=== PATIENT | male | born 1950 | race American Indian/Alaskan Native ===

== ENCOUNTER 2018-09-19 15:04 | Observation (INO) | payer OTHER ==
[2018-09-19 15:11] VITALS: BMI 21.7
[2018-09-19 16:22] LABS: BASO # 0.04 K/mm3 (0.0-2.0); BASO % 0.6 % (0.0-3.0); EOS # 0.1 (0.0-0.7); EOS % 1.5 % (1.5-5.0); GRAN # 4.3 (1.4-6.5); GRAN % 59.9 % (50.0-68.0); HEMOGLOBIN 13.7 g/dL (14.0-18.0); LYMPH % 28.3 % (22.0-35.0); MEAN CELL VOLUME 87.3 fl (80.0-105.0); MEAN CORPUSCULAR HEMOGLOBIN 28.4 pg (25.0-35.0); MEAN CORPUSCULAR HGB CONC 32.5 g/dl (31.0-37.0); MEAN PLATELET VOLUME 10.9 fl (7.0-11.0); MONO # 0.7 (0.1-0.6); MONO % 9.7 % (1.0-6.0); RBC 4.82 10^6/uL (3.5-6.1); RED CELL DISTRIBUTION WIDTH 13.9 % (11.5-14.5); WHITE BLOOD COUNT 7.2 10^3/uL (4.5-11.0)
--- NOTE | 2018-09-19 16:26 | RAD ---
Date of service: 09/19/2018 HISTORY: cp COMPARISON: No prior. FINDINGS: LUNGS: No active pulmonary disease. PLEURA: No significant pleural effusion identified, no pneumothorax apparent. CARDIOVASCULAR: No aortic atherosclerotic calcification present. Normal cardiac size. No pulmonary vascular congestion. OSSEOUS STRUCTURES: No significant abnormalities. VISUALIZED UPPER ABDOMEN: Normal. OTHER FINDINGS: None. IMPRESSION: No active disease.
[2018-09-19 16:36] LABS: ALB/GLOB RATIO 1.2 (1.1-1.8); ALBUMIN 4.3 g/dL (3.0-4.8); ALT/SGPT 22 U/L (7-56); AST/SGOT 25 U/L (17-59); BLOOD UREA NITROGEN 16 mg/dL (7-21); CALCIUM 9.5 mg/dL (8.4-10.5); GFR NON-AFRICAN AMERICAN > 60
[2018-09-19 16:48] LABS: B-TYPE NATRIURETIC PEPTIDE 12.2 pg/mL (0-450); TROPONIN I < 0.01 ng/mL
[2018-09-19 17:15] LABS: LIPASE 87 U/L (23-300)
--- NOTE | 2018-09-19 18:00 | ED PDOC ---
Arrival/HPI - General Chief Complaint: Chest Pain Time Seen by Provider: 09/19/18 15:16 Historian: Patient - History of Present Illness Narrative History of Present Illness (Text): 09/19/18 17:55 68-year-old male with a history of stroke high blood pressure and smoking history presents today with 2-3 day history of left-sided chest pressure. No associated shortness of breath. Patient denies radiation of the pain. Patient describes the pain as a pressure sensation located underneath the left breast/chest. He denies fevers or chills. He denies radiation of pain. He denies cough. No headaches dizziness or weakness. No abdominal pain. No nausea or vomiting. No urinary symptoms. Past Medical History - Provider Review Nursing Documentation Reviewed: Yes - Travel History Have you recently traveled outside [place] w/in the past 3 mons?: No - Infectious Disease Hx of Infectious Diseases: None - Cardiac Hx Cardiac Disorders: Yes Hx Hypertension: Yes - Pulmonary Hx Respiratory Disorders: No - Neurological Hx Neurological Disorder: Yes HX Cerebrovascular Accident: Yes (Nov 2017) - HEENT Hx HEENT Disorder: No - Renal Hx Renal Disorder: No - Endocrine/Metabolic Hx Endocrine Disorders: No - Hematological/Oncological Hx Blood Disorders: No - Integumentary Hx Dermatological Disorder: No - Musculoskeletal/Rheumatological Hx Musculoskeletal Disorders: No - Gastrointestinal Hx Gastrointestinal Disorders: No - Genitourinary/Gynecological Hx Genitourinary Disorders: No - Psychiatric Hx Psychophysiologic Disorder: No Hx Substance Use: No Family/Social History - Physician Review Nursing Documentation Reviewed: Yes Family/Social History: Unknown Family HX Smoking Status: Heavy Smoker > 10 Cigarettes Daily Hx Alcohol Use: Yes Frequency of alcohol use: Socially Hx Substance Use: No Allergies/Home Meds Allergies/Adverse Reactions: Allergies No Known Allergies Allergy (Verified 09/19/18 15:41) Review of Systems - Review of Systems Constitutional: absent: Fatigue, Fevers Respiratory: absent: SOB, Cough Cardiovascular: Chest Pain. absent: Palpitations Gastrointestinal: absent: Abdominal Pain, Constipation, Diarrhea, Nausea, Vomiting Genitourinary Male: absent: Dysuria, Frequency, Hematuria Musculoskeletal: absent: Arthralgias, Back Pain, Neck Pain Skin: absent: Rash, Pruritis Neurological: absent: Headache, Dizziness Psychiatric: absent: Anxiety, Depression, Suicidal Ideation Physical Exam Vital Signs Reviewed: Yes Vital Signs Temp Pulse Pulse Resp BP Pulse Ox 09/19/18 15:41 52 L 56 L 18 127/82 98 09/19/18 15:24 98.0 F 54 L 18 98/64 L 96 Temperature: Afebrile Blood Pressure: Normal Pulse: Bradycardic Respiratory Rate: Normal Appearance: Positive for: Well-Appearing, Non-Toxic, Comfortable Pain Distress: None Mental Status: Positive for: Alert and Oriented X 3 - Systems Exam Head: Present: Atraumatic Mouth: Present: Moist Mucous Membranes Neck: Present: Normal Range of Motion Respiratory/Chest: Present: Clear to Auscultation, Good Air Exchange. No: Respiratory Distress, Accessory Muscle Use Cardiovascular: Present: Regular Rate and Rhythm, Murmurs, Normal S1, S2, Bradycardic Abdomen: No: Tenderness, Distention, Rebound, Guarding Back: Present: Normal Inspection Upper Extremity: Present: Normal ROM Lower Extremity: Present: Normal ROM. No: Edema, CALF TENDERNESS Neurological: Present: GCS=15, Speech Normal Skin: Present: Warm, Dry, Normal Color. No: Rashes Psychiatric: Present: Alert, Oriented x 3 Medical Decision Making ED Course and Treatment: 09/19/18 17:57 pt with chest pain ; vitals stable cbc; wnl cmp; wnl trop: wnl ekg; Sinus bradycardiat 51 bpm, right bundle branch block, T-wave inversions in the inferior leads. No ST elevations cxr: No infiltrate or effusion no cardiomegaly asa given po pt reassessment; pt non toxic well appearing; no distress. case discussed with Dr. Hester will Admit observational status to Tele for chest pain r/o acs. pt with hx of cva, htn and smoking hx. all results discussed with patient in depth. impression; chest pain Admit observational status to tele; - Lab Interpretations Lab Results: 09/19/18 16:15 09/19/18 16:15 Lab Results 09/19/18 16:15: Sodium 141, Potassium 4.1, Chloride 103, Carbon Dioxide 33, Anion Gap 9 L, BUN 16, Creatinine 1.0, Est GFR ( Amer) > 60, Est GFR (Non-Af Amer) > 60, Random Glucose 98, Calcium 9.5, Magnesium 2.2, Total Bilirubin 0.4, AST 25, ALT 22, Alkaline Phosphatase 39, Lactate Dehydrogenase 340, Total Creatine Kinase 61, Troponin I < 0.01, NT-Pro-B Natriuret Pep 12.2, Total Protein 7.8, Albumin 4.3, Globulin 3.5, Albumin/Globulin Ratio 1.2, Lipase 87 09/19/18 16:15: WBC 7.2, RBC 4.82, Hgb 13.7 L, Hct 42.1, MCV 87.3, MCH 28.4, MCHC 32.5, RDW 13.9, Plt Count 238, MPV 10.9, Gran % 59.9, Lymph % (Auto) 28.3, Mason % (Auto) 9.7 H, Eos % (Auto) 1.5, Baso % (Auto) 0.6, Gran # 4.30, Lymph # (Auto) 2.0, Mason # (Auto) 0.7 H, Eos # (Auto) 0.1, Baso # (Auto) 0.04 - RAD Interpretation Radiology Orders: 09/19/18 15:42 CHEST PORTABLE [RAD] Stat - Medication Orders Current Medication Orders: Discontinued Medications Aspirin (Aspirin) 325 mg PO STAT STA Stop: 09/19/18 17:08 Last Admin: 09/19/18 17:17 Dose: 325 mg Disposition/Present on Arrival - Present on Arrival Any Indicators Present on Arrival: No History of DVT/PE: No History of Uncontrolled Diabetes: No Urinary Catheter: No History of Decub. Ulcer: No History Surgical Site Infection Following: None - Disposition Have Diagnosis and Disposition been Completed?: Yes Diagnosis: Chest pain Disposition: HOSPITALIZED Disposition Time: 17:00 Patient Plan: Observation Condition: FAIR Discharge Instructions (ExitCare): Chest Pain (ED)
--- NOTE | 2018-09-19 18:28 | CARD ---
APPROVED REPORT Date of service: 09/19/2018 EKG Measurement Heart [id number] <Conclusion> Sinus bradycardia Right bundle branch block T wave abnormality, consider inferior ischemia Abnormal ECG
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
[2018-09-19 20:38] LABS: PH,URINE 6.5 (4.7-8.0); URINE BILIRUBIN NEGATIVE (NEGATIVE); URINE BLOOD NEGATIVE (NEGATIVE); URINE GLUCOSE (UA) NEGATIVE (NEGATIVE); URINE LEUKOCYTE ESTERASE NEGATIVE Leu/uL (NEGATIVE); URINE PROTEIN NEGATIVE mg/dL (<30 mg/dL); URINE UROBILINOGEN 0.2 E.U./dL (<1 E.U./dL)
[2018-09-19 20:41] LABS: URINE APPEARANCE CLEAR (CLEAR); URINE COLOR LIGHT YELLOW (YELLOW)
[2018-09-19 21:31] LABS: BARBITURATES, UR NEGATIVE (NEGATIVE); BENZODIAZEPINES, UR NEGATIVE (NEGATIVE); OPIATES, UR NEGATIVE (NEGATIVE); PHENCYCLIDINE, UR NEGATIVE (NEGATIVE)
[2018-09-20 04:54] LABS: BASO # 0.06 K/mm3 (0.0-2.0); BASO % 0.8 % (0.0-3.0); EOS # 0.6 (0.0-0.7); EOS % 7.6 % (1.5-5.0); GRAN # 2.88 (1.4-6.5); GRAN % 39.1 % (50.0-68.0); HEMOGLOBIN 12.7 g/dL (14.0-18.0); LYMPH # 3.3 (1.2-3.4); LYMPH % 44.2 % (22.0-35.0); MEAN CELL VOLUME 87.1 fl (80.0-105.0); MEAN CORPUSCULAR HEMOGLOBIN 28.2 pg (25.0-35.0); MEAN CORPUSCULAR HGB CONC 32.3 g/dl (31.0-37.0); MEAN PLATELET VOLUME 11.6 fl (7.0-11.0); MONO # 0.6 (0.1-0.6); MONO % 8.3 % (1.0-6.0); RBC 4.51 10^6/uL (3.5-6.1); WHITE BLOOD COUNT 7.4 10^3/uL (4.5-11.0)
[2018-09-20 05:09] LABS: ALB/GLOB RATIO 1.2 (1.1-1.8); ALBUMIN 3.8 g/dL (3.0-4.8); ALT/SGPT 28 U/L (7-56); AST/SGOT 35 U/L (17-59); BLOOD UREA NITROGEN 21 mg/dL (7-21); CALCIUM 9.1 mg/dL (8.4-10.5); GFR NON-AFRICAN AMERICAN > 60; TROPONIN I 0.01 ng/mL
[2018-09-20] MEDS ORDERED: Pantoprazole 40 mg EC Tab PO SCH (06:00)
[2018-09-20 06:20] VITALS: PULSE 46; O2SAT 97
[2018-09-20] MEDS ORDERED: Potassium Chloride 20 mEq ER Tab PO ONE (09:25)
--- NOTE | 2018-09-20 09:56 | CARD ---
APPROVED REPORT Date of service: 09/20/2018 EXAM: Two-dimensional and M-mode echocardiogram with Doppler and color Doppler. INDICATION Chest Pain 2D DIMENSIONS Left Atrium (2D)3.1 (1.6-4.0cm)IVSd1.8 (0.7-1.1cm) LVDd4.3 (3.9-5.9cm)PWd1.1 (0.7-1.1cm) LVDs2.8 (2.5-4.0cm)FS (%) 34.0 % LVEF (%)63.3 (>50%) M-Mode DIMENSIONS Aortic Root2.50 (2.2-3.7cm)Aortic Cusp Exc.1.80 (1.5-2.0cm) Aortic Valve AoV Peak [id number]/Raymundo Peak GR.7mmHg Mitral Valve E/A ratio0.0 TDI E/Lateral E'0.0E/Medial E'0.0 Tricuspid Valve TR Peak [id number] [id number] Peak Gr.17mmHg [id number] LEFT VENTRICLE The left ventricle is normal size. There is moderate concentric left ventricular hypertrophy. The left ventricular function is normal. The left ventricular ejection fraction is within the normal range. There is normal LV segmental wall motion. Transmitral Doppler flow pattern is Grade I-abnormal relaxation pattern. RIGHT VENTRICLE The right ventricle is normal size. There is normal right ventricular wall thickness. The right ventricular systolic function is normal. ATRIA The left atrium size is normal. The right atrium size is normal. AORTIC VALVE The aortic valve is mildly thickened. No aortic regurgitation is present. There is no aortic valvular stenosis. MITRAL VALVE The mitral valve is normal in structure. There is no mitral valve regurgitation noted. There is no mitral valve stenosis. TRICUSPID VALVE The tricuspid valve is normal in structure. There is trace tricuspid regurgitation. PULMONIC VALVE The pulmonary valve is normal in structure. There is no pulmonic valvular regurgitation. GREAT VESSELS The aortic root is normal in size. The IVC is normal in size and collapses >50% with inspiration. PERICARDIAL EFFUSION There is no pericardial effusion. <Conclusion> The left ventricle is normal size. There is moderate concentric left ventricular hypertrophy. The left ventricular function is normal. The left ventricular ejection fraction is within the normal range. There is normal LV segmental wall motion. Transmitral Doppler flow pattern is Grade I-abnormal relaxation pattern.
[2018-09-20 12:14] VITALS: BP 138/91; RESP 18; TEMP 98.1
--- NOTE | 2018-09-20 13:26 | CON ---
DATE: 09/20/2018 REASON FOR CONSULTATION: Chest discomfort. HISTORY OF PRESENT ILLNESS: The patient is a 68-year-old male who comes with hypertension 3 months ago during his hospitalization in [facility] for what he was told it was a stroke. The patient did not get any reliable history over that admission. Denies having any neurological deficits before or after leaving the hospital and attributed his admitting symptoms to what he described as a food poisoning after he ate in a restaurant. The patient is unaware of any prior cardiac history. The patient presents with a chest tightness. The patient denies any associated shortness of breath or diaphoresis. SOCIAL HISTORY: Nonsmoker. MEDICATIONS: Aspirin 81 mg once daily, Lipitor 40 mg once a day, Protonix 40 mg p.o. once a day, heparin 5000 units every 8 hours. REVIEW OF SYSTEMS: No dizziness or syncope. No speech difficulty. No shortness of breath or diaphoresis. PHYSICAL EXAMINATION GENERAL: The patient is an elderly male who does not appear to be in acute distress. VITAL SIGNS: Blood pressure 130/80; heart rate today is 46 and on admission was 84, temperature 98.5, respirations 20. HEENT: Normocephalic. CHEST: Clear. HEART: S1 and S2, regular. ABDOMEN: Soft. EXTREMITIES: No edema. LABORATORY DATA: Urine drug screen is negative. Today's SMA-7; sodium 139, potassium 3.4, chloride 102, CO2 of 31, glucose 105, BUN 21, creatinine 1.2. Three sets of troponins are negative. D-dimer is within normal limits. Hemoglobin and hematocrit 12.7 and 39.3; white count and platelet count are within normal limits. EKG reveals sinus bradycardia with a rate of 51, right bundle-branch block, T-wave abnormality, consider anterior ischemia; however, on review of the EKG, it is suggestive of nonspecific T-wave changes in leads III and AVF. Echocardiograph study revealed sinus rhythm with moderate concentric LVH, normal ejection fraction, normal segmental wall motion, and grade 1 abnormal relaxation pattern. ASSESSMENT: 1. Chest pain, myocardial infarction is ruled out. 2. Hypertension and hypertensive heart disease. 3. Hypokalemia. RECOMMENDATIONS: The patient will receive K-Dur 20 mEq today. Continue aspirin and Lipitor therapy. The patient is not a suitable candidate for calcium channel blockers or RONAL inhibitors in view of his sinus bradycardia. I will obtain TSH level. I recommend a treadmill stress test to be done as an outpatient. Michael Marie MD
--- NOTE | 2018-09-20 16:11 | CP.PCM.DIS ---
<YaakovBanks - Last Filed: 09/20/18 16:06> Provider - Provider Date of Admission: 09/19/18 17:11 Attending physician: Mary Hester MD Time Spent in preparation of Discharge (in minutes): 45 Diagnosis - Discharge Diagnosis (1) Chest pain Status: Acute Hospital Course - Lab Results Lab Results: Most Recent Lab Values WBC 7.4 10^3/uL (4.5-11.0) 09/20/18 04:05 RBC 4.51 10^6/uL (3.5-6.1) 09/20/18 04:05 Hgb 12.7 g/dL (14.0-18.0) L 09/20/18 04:05 Hct 39.3 % (42.0-52.0) L 09/20/18 04:05 MCV 87.1 fl (80.0-105.0) 09/20/18 04:05 MCH 28.2 pg (25.0-35.0) 09/20/18 04:05 MCHC 32.3 g/dl (31.0-37.0) 09/20/18 04:05 RDW 14.0 % (11.5-14.5) 09/20/18 04:05 Plt Count 258 10^3/uL (120.0-450.0) 09/20/18 04:05 MPV 11.6 fl (7.0-11.0) H 09/20/18 04:05 Gran % 39.1 % (50.0-68.0) L 09/20/18 04:05 Lymph % (Auto) 44.2 % (22.0-35.0) H 09/20/18 04:05 [place] % (Auto) 8.3 % (1.0-6.0) H 09/20/18 04:05 Eos % (Auto) 7.6 % (1.5-5.0) H 09/20/18 04:05 Baso % (Auto) 0.8 % (0.0-3.0) 09/20/18 04:05 Gran # 2.88 (1.4-6.5) 09/20/18 04:05 Lymph # (Auto) 3.3 (1.2-3.4) 09/20/18 04:05 [place] # (Auto) 0.6 (0.1-0.6) 09/20/18 04:05 Eos # (Auto) 0.6 (0.0-0.7) 09/20/18 04:05 Baso # (Auto) 0.06 K/mm3 (0.0-2.0) 09/20/18 04:05 D-Dimer, Quantitative < 200 ng/mlDDU (0-243) 09/19/18 20:22 Sodium 139 mmol/L (132-148) 09/20/18 04:05 Potassium 3.4 mmol/L (3.6-5.0) L 09/20/18 04:05 Chloride 102 mmol/L (98-107) 09/20/18 04:05 Carbon Dioxide 31 mmol/L (21-33) 09/20/18 04:05 Anion Gap 9 (10-20) L 09/20/18 04:05 BUN 21 mg/dL (7-21) 09/20/18 04:05 Creatinine 1.2 mg/dl (0.8-1.5) 09/20/18 04:05 Est GFR ( Amer) > 60 09/20/18 04:05 Est GFR (Non-Af Amer) > 60 09/20/18 04:05 Random Glucose 105 mg/dL (70-110) 09/20/18 04:05 Calcium 9.1 mg/dL (8.4-10.5) 09/20/18 04:05 Phosphorus 2.9 mg/dL (2.5-4.5) 09/19/18 18:28 Magnesium 2.1 mg/dL (1.7-2.2) 09/19/18 18:28 Total Bilirubin 0.2 mg/dL (0.2-1.3) 09/20/18 04:05 AST 35 U/L (17-59) 09/20/18 04:05 ALT 28 U/L (7-56) 09/20/18 04:05 Alkaline Phosphatase 47 U/L (38-126) 09/20/18 04:05 Lactate Dehydrogenase 340 U/L (333-699) 09/19/18 16:15 Total Creatine Kinase 61 U/L (35-230) 09/19/18 16:15 Troponin I 0.01 ng/mL 09/20/18 04:05 NT-Pro-B Natriuret Pep 12.2 pg/mL (0-450) 09/19/18 16:15 Total Protein 7.0 g/dL (5.8-8.3) 09/20/18 04:05 Albumin 3.8 g/dL (3.0-4.8) 09/20/18 04:05 Globulin 3.2 gm/dL 09/20/18 04:05 Albumin/Globulin Ratio 1.2 (1.1-1.8) 09/20/18 04:05 Lipase 87 U/L (23-300) 09/19/18 16:15 TSH 3rd Generation 1.35 mIU/mL (0.46-4.68) 09/20/18 11:10 Urine Color Light yellow (YELLOW) 09/19/18 20:22 Urine Appearance Clear (CLEAR) 09/19/18 20:22 Urine pH 6.5 (4.7-8.0) 09/19/18 20:22 Ur Specific [place] 1.015 (1.005-1.035) 09/19/18 20:22 Urine Protein Negative mg/dL (<30 mg/dL) 09/19/18 20:22 Urine Glucose (UA) Negative mg/dL (NEGATIVE) 09/19/18 20:22 Urine Ketones Negative mg/dL (NEGATIVE) 09/19/18 20:22 Urine Blood Negative (NEGATIVE) 09/19/18 20:22 Urine Nitrate Negative (NEGATIVE) 09/19/18 20:22 Urine Bilirubin Negative (NEGATIVE) 09/19/18 20:22 Urine Urobilinogen 0.2 E.U./dL (<1 E.U./dL) 09/19/18 20:22 Ur Leukocyte Esterase Negative Shazia/uL (NEGATIVE) 09/19/18 20:22 Urine Opiates Screen Negative (NEGATIVE) 09/19/18 20:22 Urine Methadone Screen Negative (NEGATIVE) 09/19/18 20:22 Ur Barbiturates Screen Negative (NEGATIVE) 09/19/18 20:22 Ur Phencyclidine Scrn Negative (NEGATIVE) 09/19/18 20:22 Ur Amphetamines Screen Negative (NEGATIVE) 09/19/18 20:22 U Benzodiazepines Scrn Negative (NEGATIVE) 09/19/18 20:22 U Oth Cocaine Metabols Negative (NEGATIVE) 09/19/18 20:22 U Cannabinoids Screen Negative (NEGATIVE) 09/19/18 20:22 - Hospital Course Hospital Course: Upon admission Mr. Moran is a 68 year old male with a past medical history of HTN and CVA (early 2017) who presented to the [facility] Emergency Department (ED) on 09/19 for a three-day history of left-sided chest pressure radiating to the left axilla. On ROS, patient denied sharp pain, shortness of breath, nausea, vomiting, palpitations, and diaphoresis. He also denies pain exacerbated by activity or radiation to the neck or down the arm. Patient admitted to smoking 1/2 pack of cigarettes per day for 15 years and consuming 1 beer each week. Home medications included atorvastatin and aspirin. Hospital course EKG was ordered and revealed sinus bradycardia, right bundle branch block, and a T wave abnormality. A chest x-ray was ordered and revealed no active disease. An echocardiogram was ordered and revealed the left ventricle was normal size, left ventricular function was normal, left ventricular ejection fraction was within the normal range, and left ventricular segmental wall motion was normal. Troponins were negative X3. Patient was restarted on home medications as well as heparin and protonix for DVT/GI prophylaxis. Cardiology was consulted and recommended that the patient obtain a treadmill stress test as an outpatient. For a detailed record of hospital course, please refer to medical record. Upon discharge Patient is to follow up at the [facility] on 10/05/18 @ 3:30 pm. Patient is to establish care with a risk control analyst as an outpatient and receive a stress test, per cardiology's recommendations. Patient is to resume home medications. Patient is to refrain from smoking cigarettes and consuming alcohol. Pt expresses understanding of the medical plan and under standing of the follow ups he must do and is in agreement with the plan for discharge. Discharge Exam - Head Exam Head Exam: ATRAUMATIC, NORMAL INSPECTION, NORMOCEPHALIC - Eye Exam Eye Exam: EOMI, Normal appearance, PERRL - ENT Exam ENT Exam: Mucous Membranes Moist - Respiratory Exam Respiratory Exam: NORMAL BREATHING PATTERN, UNREMARKABLE. absent: Accessory Muscle Use, Decreased Breath Sounds, Rales, Rhonchi, Wheezes, Respiratory Distress, Stridor - Cardiovascular Exam Cardiovascular Exam: RRR, +S1, +S2. absent: Gallop, Rubs - GI/Abdominal Exam GI & Abdominal Exam: Normal Bowel Sounds, Soft, Unremarkable. absent: Hernia, Rigid, Tenderness - Extremities Exam Extremities exam: normal capillary refill, normal inspection, pedal pulses present - Back Exam Back exam: NORMAL INSPECTION. absent: CVA tenderness (L), CVA tenderness (R) - Neurological Exam Neurological exam: Alert, Oriented x3 - Psychiatric Exam Psychiatric exam: Normal Affect, Normal Mood - Skin Skin Exam: Dry, Intact, Normal Color, Warm Discharge Plan - Discharge Medications Prescriptions: Aspirin [Aspirin Chewable] 81 mg PO DAILY 30 Days #30 chew Atorvastatin [Lipitor] 10 mg PO DIN 30 Days #30 tab - Follow Up Plan Condition: FAIR Disposition: HOME/ ROUTINE Instructions: Heart Healthy Diet, Quitting Smoking for Older Adults, Smoking: Not Just Harmful to Your Lungs and Heart, Quitting Smoking, Chest Pain (GEN) Additional Instructions: Follow up with your primary care doctor (listed on your medicaid card), or you can follow up with Dr Duncan at [facility] on October 05, 2018 at 3:30 PM. Take Aspirin and lipitor. Please make an appointment with your cardiology doctor for an outpatient stress test in 1 week. Return to the ER for any concerns. Referrals: Mckenzie Duncan MD [Medical Doctor] - <Mabel Marie - Last Filed: 09/21/18 17:05> Provider - Provider Date of Admission: 09/19/18 17:11 Attending physician: Mary Hester MD Hospital Course - Lab Results Lab Results: Most Recent Lab Values WBC 7.4 10^3/uL (4.5-11.0) 09/20/18 04:05 RBC 4.51 10^6/uL (3.5-6.1) 09/20/18 04:05 Hgb 12.7 g/dL (14.0-18.0) L 09/20/18 04:05 Hct 39.3 % (42.0-52.0) L 09/20/18 04:05 MCV 87.1 fl (80.0-105.0) 09/20/18 04:05 MCH 28.2 pg (25.0-35.0) 09/20/18 04:05 MCHC 32.3 g/dl (31.0-37.0) 09/20/18 04:05 RDW 14.0 % (11.5-14.5) 09/20/18 04:05 Plt Count 258 10^3/uL (120.0-450.0) 09/20/18 04:05 MPV 11.6 fl (7.0-11.0) H 09/20/18 04:05 Gran % 39.1 % (50.0-68.0) L 09/20/18 04:05 Lymph % (Auto) 44.2 % (22.0-35.0) H 09/20/18 04:05 [place] % (Auto) 8.3 % (1.0-6.0) H 09/20/18 04:05 Eos % (Auto) 7.6 % (1.5-5.0) H 09/20/18 04:05 Baso % (Auto) 0.8 % (0.0-3.0) 09/20/18 04:05 Gran # 2.88 (1.4-6.5) 09/20/18 04:05 Lymph # (Auto) 3.3 (1.2-3.4) 09/20/18 04:05 [place] # (Auto) 0.6 (0.1-0.6) 09/20/18 04:05 Eos # (Auto) 0.6 (0.0-0.7) 09/20/18 04:05 Baso # (Auto) 0.06 K/mm3 (0.0-2.0) 09/20/18 04:05 D-Dimer, Quantitative < 200 ng/mlDDU (0-243) 09/19/18 20:22 Sodium 139 mmol/L (132-148) 09/20/18 04:05 Potassium 3.4 mmol/L (3.6-5.0) L 09/20/18 04:05 Chloride 102 mmol/L (98-107) 09/20/18 04:05 Carbon Dioxide 31 mmol/L (21-33) 09/20/18 04:05 Anion Gap 9 (10-20) L 09/20/18 04:05 BUN 21 mg/dL (7-21) 09/20/18 04:05 Creatinine 1.2 mg/dl (0.8-1.5) 09/20/18 04:05 Est GFR ( Amer) > 60 09/20/18 04:05 Est GFR (Non-Af Amer) > 60 09/20/18 04:05 Random Glucose 105 mg/dL (70-110) 09/20/18 04:05 Calcium 9.1 mg/dL (8.4-10.5) 09/20/18 04:05 Phosphorus 2.9 mg/dL (2.5-4.5) 09/19/18 18:28 Magnesium 2.1 mg/dL (1.7-2.2) 09/19/18 18:28 Total Bilirubin 0.2 mg/dL (0.2-1.3) 09/20/18 04:05 AST 35 U/L (17-59) 09/20/18 04:05 ALT 28 U/L (7-56) 09/20/18 04:05 Alkaline Phosphatase 47 U/L (38-126) 09/20/18 04:05 Lactate Dehydrogenase 340 U/L (333-699) 09/19/18 16:15 Total Creatine Kinase 61 U/L (35-230) 09/19/18 16:15 Troponin I 0.01 ng/mL 09/20/18 04:05 NT-Pro-B Natriuret Pep 12.2 pg/mL (0-450) 09/19/18 16:15 Total Protein 7.0 g/dL (5.8-8.3) 09/20/18 04:05 Albumin 3.8 g/dL (3.0-4.8) 09/20/18 04:05 Globulin 3.2 gm/dL 09/20/18 04:05 Albumin/Globulin Ratio 1.2 (1.1-1.8) 09/20/18 04:05 Lipase 87 U/L (23-300) 09/19/18 16:15 TSH 3rd Generation 1.35 mIU/mL (0.46-4.68) 09/20/18 11:10 Urine Color Light yellow (YELLOW) 09/19/18 20:22 Urine Appearance Clear (CLEAR) 09/19/18 20:22 Urine pH 6.5 (4.7-8.0) 09/19/18 20:22 Ur Specific [place] 1.015 (1.005-1.035) 09/19/18 20:22 Urine Protein Negative mg/dL (<30 mg/dL) 09/19/18 20:22 Urine Glucose (UA) Negative mg/dL (NEGATIVE) 09/19/18 20:22 Urine Ketones Negative mg/dL (NEGATIVE) 09/19/18 20:22 Urine Blood Negative (NEGATIVE) 09/19/18 20:22 Urine Nitrate Negative (NEGATIVE) 09/19/18 20:22 Urine Bilirubin Negative (NEGATIVE) 09/19/18 20:22 Urine Urobilinogen 0.2 E.U./dL (<1 E.U./dL) 09/19/18 20:22 Ur Leukocyte Esterase Negative Shazia/uL (NEGATIVE) 09/19/18 20:22 Urine Opiates Screen Negative (NEGATIVE) 09/19/18 20:22 Urine Methadone Screen Negative (NEGATIVE) 09/19/18 20:22 Ur Barbiturates Screen Negative (NEGATIVE) 09/19/18 20:22 Ur Phencyclidine Scrn Negative (NEGATIVE) 09/19/18 20:22 Ur Amphetamines Screen Negative (NEGATIVE) 09/19/18 20:22 U Benzodiazepines Scrn Negative (NEGATIVE) 09/19/18 20:22 U Oth Cocaine Metabols Negative (NEGATIVE) 09/19/18 20:22 U Cannabinoids Screen Negative (NEGATIVE) 09/19/18 20:22 Attending/Attestation - Attestation I have personally seen and examined this patient.: Yes I have fully participated in the care of the patient.: Yes I have reviewed all pertinent clinical information, including history, physical exam and plan: Yes Notes (Text): 09/21/18 17:01 Attending note; Patient seen and examined with resident. Patient is alert and awake. Denies any chest pain. Patient is a 68 year old male with past medical history of HTN and CVA in early 2018 is admitted for three day history of left sided chest pressure with radiation to his left axilla. EKG shows sinus bradycardia with right bundle branch block. Cardiac enzymes negative. Echocardiogram showed ejection fraction of 60% and moderate concentric LVH. Hypertension; blood pressure is controlled . patient does not remember the name of the medication he is taking. he has refills at home. Bradycardia; asymptomatic. Monitor closely. Cardiology evaluation appreciated. Patient will be discharged home. Outpatient stress test as needed. Active smoking; smoking cessation is strongly advised. Patient takes aspirin and Lipitor at home. Upon discharge patient will follow-up with [facility] clinic. Appointments made.
== END 2018-09-20 14:25 | disposition home or self-care (01) ==
LOC: ED 15:04 → ERH 17:11 → 2RSO 20:55
PROVIDERS: ADMIT Internal Medicine; ATTEND Internal Medicine
DX: R07.89 Other chest pain (principal); I11.9 Hypertensive heart disease without heart failure; E87.6 Hypokalemia; F17.210 Nicotine dependence, cigarettes, uncomplicated; I45.10 Unspecified right bundle-branch block; Z86.73 Personal history of transient ischemic attack (TIA), and cerebral infarction without residual deficits; Z82.3 Family history of stroke; Z82.49 Family history of ischemic heart disease and other diseases of the circulatory system
CPT/HCPCS: 36415; 71045; 80053; 80324; 80345; 80346; 80349; 80353; 80358; 80361; 81003; 82550; 83615; 83690; 83735; 83880; 83992; 84100; 84443; 84484; 85025; 85378; 93005; 93306; 99285; G0378; J1644